=== PATIENT | female | born 1965 | race Caucasian/White ===

== ENCOUNTER 2021-03-01 11:41 | Day surgery (SDC) | payer BC ==
[~2021-03-01] VITALS: Ht 170.2 cm; Wt 96.5 kg
[2021-03-01 12:18] VITALS: BP 129/78; PULSE 80; TEMP 97.9
[2021-03-01] MEDS ORDERED: VITAMIN D31000 IU PO (12:27)
[2021-03-01] MEDS ORDERED: CIPRO 500MG TA500 MG PO (12:27)
[2021-03-01] MEDS ORDERED: TEMOVATE0.05% TP (12:28)
[2021-03-01] MEDS ORDERED: VITAMIN B11000 MCG/M IM (12:29)
[2021-03-01] MEDS ORDERED: PROZAC40 MG PO (12:30)
[2021-03-01] MEDS ORDERED: BENADRYL50 MG PO (12:30)
[2021-03-01] MEDS ORDERED: FOLIC ACID 11 MG/TA1 PO (12:31)
[2021-03-01] MEDS ORDERED: HUMIRA(CF)10 MG/0.1 SQ (12:33)
[2021-03-01] MEDS ORDERED: DITROPAN 5MG TAB5 MG PO (12:34)
[2021-03-01] MEDS ORDERED: METHOTREXATE50/2 (12:34)
[2021-03-01] MEDS ORDERED: PROTONIX20 MG PO (12:35)
[2021-03-01] MEDS ORDERED: SYNTHROID0.075 MG/T PO (12:36)
[2021-03-01 13:50] VITALS: BP 120/80; PULSE 73
--- NOTE | 2021-03-01 13:50 | NUR ---
Patient to bay [address] per cart and transfers to recliner with one person assist. Temp 98.1 and room air sats 94%. IVF infusing. Spouse in room. Call light in reach. Drinking ice water.
[2021-03-01 14:05] VITALS: BP 113/78; PULSE 68
--- NOTE | 2021-03-01 14:20 | NUR ---
Tolerated water. Denies difficulty swallowing. Offered snack and states they are going to go out and eat lunch together.
--- NOTE | 2021-03-01 14:30 | NUR ---
Instructions given and voices understanding of these.
--- NOTE | 2021-03-01 14:30 | NUR ---
IV discontinued and site is without redness or swelling. Patient dresses self.
--- NOTE | 2021-03-01 14:35 | NUR ---
Patient dismissed to home driven by spouse and taken to vehicle per wheelchair and dismissed to home with instructions in hand.
== END 2021-03-01 14:35 | disposition home or self-care (01) ==
LOC: SDCO 11:41
DX: D50.9 Iron deficiency anemia, unspecified (principal); K51.90 Ulcerative colitis, unspecified, without complications; K21.9 Gastro-esophageal reflux disease without esophagitis; E03.9 Hypothyroidism, unspecified; L40.50 Arthropathic psoriasis, unspecified; D84.9 Immunodeficiency, unspecified; F32.A Depression, unspecified; F41.9 Anxiety disorder, unspecified; Z79.899 Other long term (current) drug therapy; Z90.49 Acquired absence of other specified parts of digestive tract; Z93.3 Colostomy status
CPT/HCPCS: J2704; J7120